=== PATIENT | female | born 1995 | race African-American/Black ===

== ENCOUNTER 2016-11-07 18:16 | Emergency (ER) | payer MEDICAID ==
[~2016-11-07] VITALS: Ht 172.7 cm; Wt 78.5 kg
[2016-11-07] MEDS ORDERED: ACETAMINOPHEN 325 MG TAB PO ONE (19:45)
[2016-11-07 20:54] VITALS: BP 116/64
== END 2016-11-07 22:27 | disposition home or self-care (01) ==
LOC: EDBD 18:16 → ER 18:18
DX: O9A.213 Injury, poisoning and certain other consequences of external causes complicating pregnancy, third trimester (principal); O26.893 Other specified pregnancy related conditions, third trimester; S30.1XXA Contusion of abdominal wall, initial encounter; Z3A.31 31 weeks gestation of pregnancy; V43.53XA Car driver injured in collision with pick-up truck in traffic accident, initial encounter; Y93.89 Activity, other specified; Y92.488 Other paved roadways as the place of occurrence of the external cause; Y99.8 Other external cause status
CPT/HCPCS: 76805

== ENCOUNTER 2016-12-03 21:57 | Observation (INO) | payer MEDICAID ==
[2016-12-03] MEDS ORDERED: TERBUTALINE SULFATE 1 MG/ML 1ML VIAL SC ONE (22:52)
[2016-12-03] MEDS ORDERED: LACTATED RINGER'S 1,000 ML IV SCH (23:59)
[2016-12-03] MEDS ORDERED: LACTATED RINGER'S 1,000 ML IV ONE (23:59)
[2016-12-04] MEDS ORDERED: TERBUTALINE SULFATE 1 MG/ML 1ML VIAL SC SCH
[2016-12-04] MEDS ORDERED: PREN-96 OR (00:01)
== END 2016-12-04 01:41 | disposition home or self-care (01) | DRG 563 ==
LOC: LDRP 21:57
PROVIDERS: ADMIT Obstetrics & Gynecology; ATTEND Obstetrics & Gynecology
DX: O60.03 Preterm labor without delivery, third trimester (principal); Z3A.35 35 weeks gestation of pregnancy
CPT/HCPCS: 59025; 81002; G0378; J3105; 96365; 96366; 96372

== ENCOUNTER 2017-01-01 20:52 | Observation (INO) | payer MEDICAID ==
[~2017-01-01] VITALS: Ht 175.3 cm; Wt 79.4 kg
[~2017-01-01 20:52] MED LIST: PREN-96 OR
[2017-01-01] MEDS ORDERED: BETAMETHASONE ACET (6MG/ML) 5ML VIAL ONE (21:15)
[2017-01-01] MEDS ORDERED: BETAMETHASONE ACET (6MG/ML) 5ML VIAL IM ONE (21:30)
== END 2017-01-01 22:20 | disposition home or self-care (01) | DRG 566 ==
LOC: LDRP 20:52
PROVIDERS: ADMIT Specialist; ATTEND Specialist
DX: O62.9 Abnormality of forces of labor, unspecified (principal); Z3A.39 39 weeks gestation of pregnancy
CPT/HCPCS: 59025; 76818; 81002; 96372; G0378; J0702

== ENCOUNTER 2017-01-02 18:30 | Observation (INO) | payer MEDICAID ==
[2017-01-02] MEDS ORDERED: BETAMETHASONE ACET (6MG/ML) 5ML VIAL IM ONE (19:00)
== END 2017-01-02 21:46 | disposition home or self-care (01) | DRG 566 ==
LOC: LDRP 18:30
PROVIDERS: ADMIT Obstetrics & Gynecology; ATTEND Obstetrics & Gynecology
DX: O62.9 Abnormality of forces of labor, unspecified (principal); Z3A.39 39 weeks gestation of pregnancy
CPT/HCPCS: 59025; 81002; G0378; 96372

== ENCOUNTER 2018-07-30 20:17 | Emergency (ER) | payer MEDICAID ==
[~2018-07-30] VITALS: Ht 172.7 cm; Wt 73.5 kg
[2018-07-30 21:24] LABS: Basophils # (auto) 0.1 uL; Basophils % (auto) 0.8 % (0.0-2.0); Eosinophils # (auto) 0.2 uL; Eosinophils % (auto) 3.7 % (0.0-7.0); Hematocrit 41.7 % (36.0-46.0); Hemoglobin 14.1 g/dL (12.2-16.2); Lymphocytes # (auto) 2.9 uL; Lymphocytes % (auto) 43.7 % (10.0-50.0); Mean Corpuscular Hemoglobin 31.4 pg (28.0-32.0); Mean Corpuscular Hgb Conc. 33.8 g/dL (32.0-36.0); Mean Corpuscular Volume 92.9 fL (80.0-100.0); Monocytes # (auto) 0.2 uL; Monocytes % (auto) 3.4 % (0.0-12.0); Neutrophils # (auto) 3.2 uL; Neutrophils % (auto) 48.4 % (37.0-80.0); Nucleated Red Blood Cells % 0.3 %; Platelet Count (auto) 293 10^3/uL (140-450); Red Blood Cells 4.49 10^6/uL (4.0-5.20); Red Cell Distribution Width 14.5 % (11.8-14.3); White Blood Cell 6.6 10^3/uL (4.4-10.8)
[2018-07-30 21:29] LABS: Albumin 3.8 g/dL (3.4-5.0); Calcium 8.7 mg/dL (8.5-10.1); Potassium 4.1 mmol/L (3.5-5.1)
[2018-07-30 21:32] LABS: BUN/Creatinine Ratio 9.8; Bilirubin, Total 0.3 mg/dL (0.2-1.0); Total Protein 8.2 g/dL (6.4-8.2)
[2018-07-31 03:12] VITALS: BP 104/70
[2018-07-31] MEDS ORDERED: SODIUM CHLORIDE 0.9% 500 ML IV ONE (03:14)
[2018-07-31 03:18] LABS: Urine Bacteria FEW /hpf (None Seen); Urine Blood 3+ /uL (Negative); Urine Specific Gravity 1.022 (1.001-1.035); Urine WBC 19 /hpf (0 - 5)
== END 2018-07-31 03:50 | disposition left against medical advice (07) ==
LOC: ER 20:30
DX: O46.91 Antepartum hemorrhage, unspecified, first trimester (principal); O23.41 Unspecified infection of urinary tract in pregnancy, first trimester; Z3A.01 Less than 8 weeks gestation of pregnancy; Z79.899 Other long term (current) drug therapy
CPT/HCPCS: 36415; 76801; 76817; 80053; 81001; 84702; 85025; 86900; 86901; 94761

== ENCOUNTER 2019-09-02 09:25 | Observation (INO) | payer MEDICAID ==
[~2019-09-02] VITALS: Ht 172.7 cm; Wt 72.6 kg
[~2019-09-02 09:25] MED LIST changes: -PREN-96 OR; +PREN-96 PO
[2019-09-02] MEDS ORDERED: LACTATED RINGER'S 1,000 ML IV ONE (10:30)
== END 2019-09-02 11:50 | disposition home or self-care (01) | DRG 566 ==
LOC: LDRP 09:25
PROVIDERS: ADMIT Specialist; ATTEND Specialist
DX: O62.9 Abnormality of forces of labor, unspecified (principal); O60.03 Preterm labor without delivery, third trimester; Z3A.32 32 weeks gestation of pregnancy
CPT/HCPCS: 59025; 81002; G0378

== ENCOUNTER 2019-09-09 15:35 | Observation (INO) | payer MEDICAID | END 2019-09-09 16:10 | disposition home or self-care (01) | DRG 563 | LOC: LDRP 15:35 | PROVIDERS: ADMIT Specialist; ATTEND Specialist | DX: O60.03 Preterm labor without delivery, third trimester (principal); Z3A.33 33 weeks gestation of pregnancy | CPT/HCPCS: 59025; 81002; G0378 ==

== ENCOUNTER 2019-09-15 10:25 | Observation (INO) | payer MEDICAID | END 2019-09-15 11:45 | disposition home or self-care (01) | DRG 563 | LOC: LDRP 10:25 | PROVIDERS: ADMIT Specialist; ATTEND Specialist | DX: O60.03 Preterm labor without delivery, third trimester (principal); Z3A.34 34 weeks gestation of pregnancy | CPT/HCPCS: 59025; 81002; G0378 ==

== ENCOUNTER 2019-09-23 09:50 | Observation (INO) | payer MEDICAID | END 2019-09-23 10:49 | disposition home or self-care (01) | DRG 563 | LOC: LDRP 09:50 | PROVIDERS: ADMIT Specialist; ATTEND Specialist | DX: O60.03 Preterm labor without delivery, third trimester (principal); Z3A.35 35 weeks gestation of pregnancy | CPT/HCPCS: 59025; 81002; G0378 ==

== ENCOUNTER 2019-10-03 23:25 | Observation (INO) | payer MEDICAID | END 2019-10-04 01:21 | disposition home or self-care (01) | DRG 566 | LOC: LDRP 23:25 | PROVIDERS: ADMIT Specialist; ATTEND Specialist | DX: O62.9 Abnormality of forces of labor, unspecified (principal); Z3A.36 36 weeks gestation of pregnancy | CPT/HCPCS: 59025; 81002; G0378 ==

== ENCOUNTER 2019-10-04 19:51 | Observation (INO) | payer MEDICAID | END 2019-10-04 20:40 | disposition home or self-care (01) | DRG 566 | LOC: LDRP 19:51 | PROVIDERS: ADMIT Specialist; ATTEND Specialist | DX: O62.9 Abnormality of forces of labor, unspecified (principal); Z3A.36 36 weeks gestation of pregnancy | CPT/HCPCS: 59025; 81002; G0378 ==

== ENCOUNTER 2019-10-08 | Observation (INO) | payer MEDICAID ==
[2019-10-08] MEDS ORDERED: TERBUTALINE SULFATE 1 MG/ML 1ML VIAL SC ONE (00:51)
[2019-10-08] MEDS ORDERED: TERBUTALINE SULFATE 1 MG/ML 1ML VIAL SC SCH (01:00)
== END 2019-10-08 01:17 | disposition home or self-care (01) | DRG 566 ==
LOC: LDRP
PROVIDERS: ADMIT Specialist; ATTEND Specialist
DX: O62.9 Abnormality of forces of labor, unspecified (principal); Z3A.37 37 weeks gestation of pregnancy
CPT/HCPCS: 59025; 81002; G0378; J3105

== ENCOUNTER 2019-10-20 11:20 | Observation (INO) | payer MEDICAID | END 2019-10-20 13:05 | disposition home or self-care (01) | LOC: LDRP 11:20 | PROVIDERS: ADMIT Specialist; ATTEND Specialist | DX: O62.9 Abnormality of forces of labor, unspecified (principal); Z3A.39 39 weeks gestation of pregnancy | CPT/HCPCS: 59025; 81002; G0378 ==

== ENCOUNTER 2019-10-23 21:25 | Inpatient (IN) | payer MEDICAID ==
[~2019-10-23] VITALS: Ht 172.7 cm; Wt 83.0 kg
[2019-10-23] MEDS ORDERED: LACT. RINGERS/OXYTOCIN 20UNITS 1,000 ML IV SCH (23:19)
[2019-10-23] MEDS ORDERED: PHISODERM TOP SOLN 240ML BTL TOP PRN (23:30)
[2019-10-23] MEDS ORDERED: DERMOPLAST 60ML BOTTLE TOP PRN (23:30)
[2019-10-23] MEDS ORDERED: METHYLERGONOVINE MALEATE 0.2 MG/ML AMP IM PRN (23:30)
[2019-10-23] MEDS ORDERED: WITCH HAZEL-GLYCERIN PAD TOP PRN (23:30)
[2019-10-23] MEDS ORDERED: CARBOPROST TROMETHAMINE 250 MCG/1ML VIAL IM PRN (23:30)
[2019-10-23] MEDS ORDERED: LIDOCAINE 2%HCL (LOCAL ANESTH.) INJ 20ML MDV IJ PRN (23:30)
[2019-10-24 00:04] LABS: Basophils # (auto) 0.1 10 ^3/uL (0-0.2); Basophils % (auto) 0.7 % (0.0-2.0); Eosinophils # (auto) 0 10 ^3/uL (0-0.8); Eosinophils % (auto) 0.4 % (0.0-7.0); Hematocrit 35.5 % (36.0-46.0); Hemoglobin 12.1 g/dL (12.2-16.2); Lymphocytes # (auto) 1.8 10 ^3/uL (0.4-5.4); Lymphocytes % (auto) 22.2 % (10.0-50.0); Mean Corpuscular Hemoglobin 32.1 pg (28.0-32.0); Mean Corpuscular Volume 94.2 fL (80.0-100.0); Monocytes # (auto) 0.4 10 ^3/uL (0-1.3); Monocytes % (auto) 5.2 % (0.0-12.0); Neutrophils % (auto) 71.5 % (37.0-80.0); Nucleated Red Blood Cells % 0.1 %; Platelet Count (auto) 172 10^3/uL (140-450); Red Blood Cells 3.76 10^6/uL (4.0-5.20); Red Cell Distribution Width 14.1 % (11.8-14.3); White Blood Cell 8.3 10^3/uL (4.4-10.8)
[2019-10-24 00:19] LABS: INR 0.89 (0.9-1.15); Partial Thromboplastin Time 28.1 sec (23.0-31.2)
[2019-10-24 00:28] LABS: Albumin 2.6 g/dL (3.4-5.0); BUN/Creatinine Ratio 5.6; Calcium 9.1 mg/dL (8.5-10.1); Potassium 3.6 mmol/L (3.5-5.1)
[2019-10-24 00:39] LABS: Urine Bacteria NONE SEEN /hpf (None Seen); Urine Blood TRACE /uL (Negative); Urine Specific Gravity 1.004 (1.001-1.035); Urine WBC 1 /hpf (0 - 5)
[2019-10-24 00:40] LABS: Bilirubin, Total 0.4 mg/dL (0.2-1.0)
[2019-10-24] MEDS: LACTATED RINGER'S 1,000 ML IV SCH ×2 (02:41)
[2019-10-24] MEDS ORDERED: LIDOCAINE HCL 2 %PF INJ 10ML AMP IJ ONE (03:45)
[2019-10-24] MEDS ORDERED: fentaNYL CITRATE 100 MCG/2 ML VL IV ONE (03:45)
[2019-10-24] MEDS ORDERED: ePHEDrine SULFATE 50 MG/ML AMP IV ONE ×2 (03:45→04:45)
[2019-10-24] MEDS ORDERED: ROPIVACAINE HCL 100 ML EPI SCH ×2 (03:45→04:45)
[2019-10-24] MEDS ORDERED: NALOXONE HCL 0.4 MG/ML VIAL IV ONE ×2 (03:45→04:45)
[2019-10-24] MEDS ORDERED: LACTATED RINGER'S 1,000 ML IV ONE (04:42)
[2019-10-24] MEDS ORDERED: LACT. RINGERS/OXYTOCIN 20UNITS 500 ML IV PRN (07:45)
[2019-10-24] MEDS ORDERED: LACT. RINGERS/OXYTOCIN 20UNITS 1,000 ML IV PRN (07:45)
[2019-10-24] MEDS ORDERED: ceFAZolin 1GM/50ML 50 ML IV SCH (12:00)
[2019-10-24 15:09] VITALS: BP 117/69
--- NOTE | 2019-10-24 16:00 | NUR ---
Ambulation: Epidural catheter removed, without resistance, blue tip intact, pt tolerated well.Patient OOB with standby assistance by RN. Patient ambulated to bathroom with steady gait. Patient able to void 1000ML without difficulty. Pericare teaching provided with returned demonstration by patient. Clean gown provided and bed linen changed. Patient ambulated back to bed with steady gait and no distress noted.
[2019-10-24] MEDS: IBUPROFEN 600 MG TAB PO PRN (16:12)
[2019-10-24 19:30] VITALS: BP 112/63
[2019-10-24 23:20] VITALS: BP 99/68
[2019-10-25 02:45] VITALS: BP 122/74
[2019-10-25] MEDS: IBUPROFEN 600 MG TAB PO PRN ×2 (02:50→09:33)
[2019-10-25 05:07] LABS: RPR Non Reactive (Non Reactive)
[2019-10-25 06:54] VITALS: BP 111/61
[2019-10-25 11:10] VITALS: BP 111/61
--- NOTE | 2019-10-25 12:05 | NUR ---
PRESCRIPTION CALLED INTO [facility] ON [address] PER ORDERS ,PT MADE AWARE
--- NOTE | 2019-10-25 14:40 | NUR ---
Discharge: Discharge instructions given as ordered. Pt encouraged to follow up with TRANSPORT SPECIALIST as instructed. All questions and concerns addressed. Patient verbalized understanding. Medication reconciliation completed and copy given to patient.. Patient encouraged to prepare to depart unit.
[2019-10-25 15:10] VITALS: BP 116/68
--- NOTE | 2019-10-25 15:20 | NUR ---
Discharge: Patient taken to vehicle via wheelchair with all personal belongings, accompanied by staff and family member. No distress noted at time of departure, no adverse changes in status since initial assessment.
== END 2019-10-25 15:20 | disposition home or self-care (01) | DRG 560 ==
LOC: LDRP 21:25 → OBSVTOIN 22:05 → LDRP 23:05
PROVIDERS: ADMIT Specialist; ATTEND Specialist
PROC: 10E0XZZ Delivery of Products of Conception, External Approach (ICD-10-PCS; principal; 2019-10-24)
PROC: 10H07YZ Insertion of Other Device into Products of Conception, Via Natural or Artificial Opening (ICD-10-PCS; 2019-10-24)
PROC: 3E0R3BZ Introduction of Anesthetic Agent into Spinal Canal, Percutaneous Approach (ICD-10-PCS; 2019-10-24)
PROC: 00HU33Z Insertion of Infusion Device into Spinal Canal, Percutaneous Approach (ICD-10-PCS; 2019-10-24)
DX: O77.0 Labor and delivery complicated by meconium in amniotic fluid (principal); Z3A.39 39 weeks gestation of pregnancy; Z37.0 Single live birth
CPT/HCPCS: 36415; 59025; 59409; 62282; 80053; 81001; 84112; 85025; 85610; 85730; 86592; 86850; 86900; 86901; 94760; 96360; 96361; 96365; 96366; G0378; J0690; J2590

== ENCOUNTER 2021-08-20 21:55 | Emergency (ER) | payer MEDICAID ==
[~2021-08-20] VITALS: Ht 172.7 cm; Wt 65.8 kg
[2021-08-20 22:40] VITALS: BP 136/86
== END 2021-08-21 02:45 | disposition home or self-care (01) ==
LOC: ER 21:55
DX: R07.81 Pleurodynia (principal)
CPT/HCPCS: 71101

== ENCOUNTER 2021-12-24 19:45 | Emergency (ER) | payer MEDICAID ==
[~2021-12-24] VITALS: Ht 172.7 cm; Wt 65.9 kg
[2021-12-24 20:01] VITALS: BP 116/68
[2021-12-24 20:25] LABS: Basophils # (auto) 0.1 10 ^3/uL (0-0.2); Basophils % (auto) 0.9 % (0.0-2.0); Eosinophils # (auto) 0.1 10 ^3/uL (0-0.8); Eosinophils % (auto) 1.1 % (0.0-7.0); Hematocrit 38.2 % (36.0-46.0); Hemoglobin 13.2 g/dL (12.2-16.2); Lymphocytes # (auto) 2.7 10 ^3/uL (0.4-5.4); Lymphocytes % (auto) 36.5 % (10.0-50.0); Mean Corpuscular Hemoglobin 31.5 pg (28.0-32.0); Mean Corpuscular Hgb Conc. 34.6 g/dL (32.0-36.0); Mean Corpuscular Volume 91.1 fL (80.0-100.0); Monocytes # (auto) 0.3 10 ^3/uL (0-1.3); Monocytes % (auto) 4.2 % (0.0-12.0); Neutrophils # (auto) 4.2 10 ^3/uL (1.6-8.6); Neutrophils % (auto) 57.3 % (37.0-80.0); Nucleated Red Blood Cells % 0.1 %; Red Blood Cells 4.19 10^6/uL (4.0-5.20); Red Cell Distribution Width 13.4 % (11.8-14.3); White Blood Cell 7.3 10^3/uL (4.4-10.8)
[2021-12-24 20:55] LABS: Albumin 3.6 g/dL (3.4-5.0); BUN/Creatinine Ratio 9.6; Calcium 8.4 mg/dL (8.5-10.1); Potassium 3.8 mmol/L (3.5-5.1)
[2021-12-24 20:58] LABS: Bilirubin, Total 0.4 mg/dL (0.2-1.0); Total Protein 7.2 g/dL (6.4-8.2)
[2021-12-24 21:27] LABS: Urine Bacteria NONE SEEN /hpf (None Seen); Urine Blood 1+ /uL (Negative); Urine Specific Gravity 1.018 (1.001-1.035); Urine WBC <1 /hpf (0 - 5)
== END 2021-12-24 22:47 | disposition left against medical advice (07) ==
LOC: ER 19:46
DX: O20.8 Other hemorrhage in early pregnancy (principal); Z3A.01 Less than 8 weeks gestation of pregnancy; Z53.21 Procedure and treatment not carried out due to patient leaving prior to being seen by health care provider
CPT/HCPCS: 36415; 80053; 81001; 84702; 85025

== ENCOUNTER 2022-05-01 19:45 | Observation (INO) | payer MEDICAID ==
[~2022-05-01] VITALS: Ht 172.7 cm; Wt 84.4 kg
[2022-05-01] MEDS ORDERED: PREN-96 PO (20:33)
== END 2022-05-01 20:57 | disposition home or self-care (01) ==
LOC: LDRP 19:45
PROVIDERS: ADMIT Obstetrics & Gynecology; ATTEND Obstetrics & Gynecology
DX: O36.8120 Decreased fetal movements, second trimester, not applicable or unspecified (principal); O26.892 Other specified pregnancy related conditions, second trimester; R11.0 Nausea; Z3A.24 24 weeks gestation of pregnancy
CPT/HCPCS: 59025; 81002; 94760; G0378

== ENCOUNTER 2022-06-03 20:14 | Observation (INO) | payer MEDICAID ==
[2022-06-03 21:43] LABS: Basophils # (auto) 0.1 10 ^3/uL (0-0.2); Basophils % (auto) 1.3 % (0.0-2.0); Eosinophils # (auto) 0.1 10 ^3/uL (0-0.8); Eosinophils % (auto) 0.9 % (0.0-7.0); Hematocrit 33.3 % (36.0-46.0); Hemoglobin 11.2 g/dL (12.2-16.2); Lymphocytes # (auto) 2.1 10 ^3/uL (0.4-5.4); Lymphocytes % (auto) 24.4 % (10.0-50.0); Mean Corpuscular Hemoglobin 30.1 pg (28.0-32.0); Mean Corpuscular Hgb Conc. 33.6 g/dL (32.0-36.0); Mean Corpuscular Volume 89.6 fL (80.0-100.0); Monocytes # (auto) 0.3 10 ^3/uL (0-1.3); Monocytes % (auto) 3.7 % (0.0-12.0); Neutrophils # (auto) 6.1 10 ^3/uL (1.6-8.6); Neutrophils % (auto) 69.7 % (37.0-80.0); Nucleated Red Blood Cells % 0.2 %; Red Blood Cells 3.72 10^6/uL (4.0-5.20); Red Cell Distribution Width 14.8 % (11.8-14.3); White Blood Cell 8.7 10^3/uL (4.4-10.8)
[2022-06-03 22:04] LABS: Urine Bacteria FEW /hpf (None Seen); Urine Blood Negative /uL (Negative); Urine Specific Gravity 1.018 (1.001-1.035); Urine WBC 3 /hpf (0 - 5)
[2022-06-03 22:14] LABS: INR 0.92 (0.9-1.15); Partial Thromboplastin Time 25.2 sec (24.6-33.4)
[2022-06-03 22:15] LABS: Albumin 2.5 g/dL (3.4-5.0); Calcium 8.3 mg/dL (8.5-10.1); Potassium 3.8 mmol/L (3.5-5.1); Uric Acid 4.6 mg/dL (2.6-6.0)
[2022-06-03 22:17] LABS: Protein, Urine 15.2 mg/dL (0.0-11.9)
[2022-06-03 22:19] LABS: BUN/Creatinine Ratio 7.2 (10.0-20.0); Bilirubin, Total 0.2 mg/dL (0.2-1.0); Total Protein 6.8 g/dL (6.4-8.2)
== END 2022-06-03 22:40 | disposition home or self-care (01) ==
LOC: LDRP 20:14
PROVIDERS: ADMIT Obstetrics & Gynecology; ATTEND Obstetrics & Gynecology
DX: O99.891 Other specified diseases and conditions complicating pregnancy (principal); M79.89 Other specified soft tissue disorders; O13.3 Gestational [pregnancy-induced] hypertension without significant proteinuria, third trimester; O62.9 Abnormality of forces of labor, unspecified; O26.893 Other specified pregnancy related conditions, third trimester; R20.2 Paresthesia of skin; Z3A.29 29 weeks gestation of pregnancy
CPT/HCPCS: 36415; 59025; 80053; 81001; 81002; 82570; 84156; 84550; 85025; 85610; 85730; 94760; G0378

== ENCOUNTER 2022-06-20 18:10 | Observation (INO) | payer MEDICAID | END 2022-06-20 20:25 | disposition home or self-care (01) | LOC: LDRP 18:10 | PROVIDERS: ADMIT Obstetrics & Gynecology; ATTEND Obstetrics & Gynecology | DX: O42.913 Preterm premature rupture of membranes, unspecified as to length of time between rupture and onset of labor, third trimester (principal); O36.8130 Decreased fetal movements, third trimester, not applicable or unspecified; O26.873 Cervical shortening, third trimester; Z3A.31 31 weeks gestation of pregnancy | CPT/HCPCS: 59025; 76818; 81002; 84112; 94760; G0378; Q0114 ==